=== PATIENT | male | born 1945 | race Caucasian/White ===

== ENCOUNTER 2016-05-15 05:21 | Emergency (ER) | payer MEDICARE ==
--- NOTE | ~2016-05-15 | EKG ---
PATIENT: DAVID DIAZ UNIT #: [id number] Ventricular Rate: 64 BPM Atrial Rate: 64 BPM P-R Interval: 142 ms QRS Duration: 90 ms Q-T Interval: 426 ms QTC Calculation(Bezet): 439 ms P [place]: 13 degrees Calculated R [place]: 32 degrees Calculated T [place]: 44 degrees Diagnosis Line: Sinus rhythm with Premature supraventricular Diagnosis Line: complexes Diagnosis Line: Otherwise normal ECG Diagnosis Line: When compared with ECG of 10-AUG-2011 06:15, Diagnosis Line: Premature supraventricular complexes are now Diagnosis Line: Present Diagnosis Line: Criteria for Inferior infarct are no longer Diagnosis Line: Present Diagnosis Line: Confirmed by MIGUEL ANGEL PENN MD ([id number]) on 05/15/2016 Diagnosis Line: 11:28:53 PM INTERPRETING MD: FILI TOUSSAINT
[~2016-05-15 05:21] MED LIST: ACCUPRIL10 MG PO; BENZONATATE PO; CLOPIDOGREL75 MG PO; COZAAR100 MG PO; HYDROCORTISONE30 G2 EXT; MELOXICAM15 MG PO; METFORMIN HCL1000 M1 PO; METFORMIN HCL500 M3 PO; MICRONASE5 M1 PO; MICRONASE5 M2 PO; ONDANSETRON ODT4 MG PO; PLAVIX PO; RANITIDINE HCL150 M1 PO; SIMVASTATIN20 MG PO; ZANTAC150 M1 PO; ZOCOR20 MG PO; ZYRTEC10 M2 PO
== END 2016-05-15 06:19 | disposition home or self-care (01) ==
LOC: CED 05:21
DX: H81.10 Benign paroxysmal vertigo, unspecified ear (principal)
CPT/HCPCS: 82947; 93005; 96374; 99284; J1100